=== PATIENT | female | born 1965 | race Caucasian/White ===

== ENCOUNTER → 2017-06-20 08:23 | Outpatient (CLI) | payer OTHER, SELFPAY ==
--- NOTE | 2017-06-20 | DI.RAD.S_ITS ---
PROCEDURE: FL UPPER GI W AIR INDICATIONS: EPIGASTRIC PAIN COMPARISON: None. 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 No suspicious abdominal calcifications, probable ingested tablet in the right midabdomen. Visualized solid organ contours appear normal. Bony structures appear unremarkable. Esophagus: Esophageal mucosa is normal on air-contrast views. On single-contrast views, there is normal esophageal peristalsis. No strictures, extrinsic mass effects, or diverticula. No hiatal hernia or elicited gastroesophageal reflux. There is normal transit of a calibrated barium tablet through the esophagus. Stomach: The stomach is normally distensible, with normal rugal fold thickness. No mucosal masses or ulcers. Pylorus and duodenal bulb appear normal in morphology. Duodenal folds are normal in thickness as well. IMPRESSION: Normal upper GI series. Source of epigastric pain is not seen. Dictated by: Reuben Zarate M.D. on 06/20/2017 at 9:13 Approved by: Reuben Zarate M.D. on 06/20/2017 at 9:15
== END ==
PROVIDERS: Family Provider Physician Assistant; PCP Physician Assistant; Visit Provider Physician Assistant
DX: R10.13 Epigastric pain (principal)
CPT/HCPCS: 74247

== ENCOUNTER → 2019-08-21 17:39 | Outpatient (CLI) | payer OTHER, SELFPAY ==
--- NOTE | 2019-08-21 | DI.MG.S_ITS ---
BILATERAL DIGITAL SCREENING MAMMOGRAM 3D/2D WITH CAD: 08/21/2019 CLINICAL: Routine screening. Comparison is made to exams dated: 04/15/2010 mammogram and 10/02/2008 mammogram - [facility]. There are scattered fibroglandular elements in both breasts. Current study was also evaluated with a Computer Aided Detection (CAD) system. No significant masses, calcifications, or other findings are seen in either breast. There has been no significant interval change. IMPRESSION: NEGATIVE There is no mammographic evidence of malignancy. A 1 year screening mammogram is recommended. This exam was interpreted at Station ID: [id number]. NOTE: For mammograms, a report in lay terms will be sent to the patient. Approximately 15% of breast malignancies will not be visualized mammographically. In the management of a palpable breast mass, a negative mammogram must not discourage biopsy of a clinically suspicious lesion. Electronically Signed By: Lacy sharma/logan:08/22/2019 11:13:31 letter sent: Normal Exam ACR BI-RADS Category 1: Negative [id number]
== END ==
PROVIDERS: Family Provider Physician Assistant; PCP Student in an Organized Health Care Education/Training Program; Referring Provider Student in an Organized Health Care Education/Training Program; Visit Provider Student in an Organized Health Care Education/Training Program
DX: Z12.31 Encounter for screening mammogram for malignant neoplasm of breast (principal)
CPT/HCPCS: 77063; 77067

== ENCOUNTER → 2020-09-10 09:05 | Outpatient (CLI) | payer OTHER, SELFPAY ==
[2020-09-10 10:20] LABS: COVID19 -Nasal RAPID Negative (Negative)
== END ==
PROVIDERS: Family Provider Physician Assistant; PCP Student in an Organized Health Care Education/Training Program; Referring Provider Surgery; Visit Provider Surgery
DX: Z20.822 Contact with and (suspected) exposure to COVID-19 (principal)
CPT/HCPCS: 87635; C9803

== ENCOUNTER 2020-09-11 12:00 | Day surgery (SDC) | payer OTHER, SELFPAY ==
[2020-09-11] VITALS (8 sets, daily range): BP systolic 123–144; BP diastolic 41–93; PULSE 60–74; RESP 12–17; TEMP 36.4–36.9; O2SAT 95–100; BMI 32.8
[2020-09-11] MEDS: LACTATED RINGERS 1,000 ML 200 ML IV (12:12)
--- NOTE | 2020-09-11 13:17 | PM.HP.1 ---
History of Present Illness History of Present Illness Date Patient Seen: 09/11/20 Time Patient Seen: 13:17 Chief complaint: SDC Narrative: The patient presents for colorectal sreening. They have never had any previous examination for such. No personal or family history of colon cancer. On further history denies any recent gastrointestinal symptoms. No nausea, vomiting, abdominal pain, loss of appetite, unexplained weight loss, change in bowel habits, diarrhea, constipation, melena, hematochezia, or bright red blood per rectum. Patient History Medical History (Updated 09/11/20 @ 13:18 by Bossman Hurtado MD) Appendicitis Surgical History Status post surgery (10/20/16) Family & Social History Social History: household members spouse Tobacco & Substance use: Smoking Status Never smoker alcohol intake frequency 3 or more drinks per day Substance Use Type does not use Meds Home Medications and Allergies Home Medications Medication Instructions Recorded Confirmed Type venlafaxine 150 mg tablet,extended 150 mg PO QDAY #0 10/20/16 09/11/20 History release 24 hr levonorgestrel 20 mcg/24 hours (6 See Rx Instructions .ROUTE 11/25/16 09/11/20 History yrs) 52 mg intrauterine device .COMPLEX #0 (Mirena) montelukast 10 mg tablet 10 mg PO DAILY 09/11/20 09/11/20 History Allergies Allergy/AdvReac Type Severity Reaction Status Date / Time hydrocodone [From VICODIN] Allergy Intermediate rash and Verified 09/11/20 12:40 vomiting Penicillins [PENICILLINS] Allergy Unknown unknown Verified 09/11/20 12:40 happed as a child Review of Systems Review of Systems ROS: Yes All systems reviewed with the patient and are negative except as otherwise documented Exam Vital Signs (past 8 hours): - 09/11/20 12:20 Temperature 98.5 F Pulse Rate 68 Respiratory Rate 16 Blood Pressure 144/93 H Pulse Oximetry 100 Oxygen Delivery Method Room Air Narrative Exam Narrative: BBCOGBL-tvdz-[id number] adult woman, no acute distress HEENT-no scleral icterus, hearing intact NECK-no JVD, trachea midline CVS- regular rate, no peripheral edema RESP-unlabored respiratory effort, no audible wheezing GI-soft, nontender nondistended MSK-no cyanosis or clubbing, extremities without deformity SKIN-warm, dry NEURO-alert and oriented, no focal deficits PYSCH-Appropriate mood and affect Assessment & Plan Assessment & Plan narrative: The patient requires colorectal screening and colonoscopy is recommended. Technical details were discussed. Risks, benefits, alternatives explained. Risks including but not limited to myocardial infarction, aspiration, bleeding, pain, missed lesion, incomplete examination, need for further radiographic studies, colonic perforation, and need for major abdominal surgery were discussed. All questions were answered to their satisfaction, and they are in agreement with this plan.
[2020-09-11] MEDS: MIDAZOLAM 5 MG/5 ML VIAL IV (13:23)
[2020-09-11] MEDS: fentaNYL 250 MCG/5 ML INJ IV (13:24)
--- NOTE | 2020-09-11 13:28 | PM.OP.ENDO ---
Operative Date/Time/Diagnoses Date of procedure: 09/11/20 Time of procedure: 13:28 Pre-op diagnosis: Screening colonoscopy Post-op diagnosis: other (Aborted colonoscopy) Procedure & Clinicians Study performed: Aborted colonoscopy Same procedure as scheduled: No Indications: Screening Surgeon: Bossman Hurtado Procedure Notes Procedure in detail: Medications: Conscious sedation using 5mg IV midazolam and 100mcg IV of fentanyl The history and physical was performed/updated and the patient is ASA class is 2. The procedure was discussed in detail with the patient. Potential risks complications including infection, bleeding, missed diagnosis, perforation, need for surgery, and were explained. Their questions were answered and informed consent was obtained. Patient was brought to the procedure room and placed standard monitoring equipment. The patient's vital signs were monitored continuously throughout the entire procedure. Prior to starting time-out was performed. The patient was placed in the left lateral recumbent position. Procedural sedation was administered. Examination began with a thorough inspection of the perianal area there was no evidence of fissures, fistulae, external hemorrhoids or cutaneous malignancy. The colonoscopy scope was then placed into the anal canal and was advanced forward. Quality of preparation was quite poor and despite irrigation it was in adequate for examination. Procedure was aborted FINDINGS 1. In adequate preparation The patient tolerated the procedure well. They will be discharged once criteria are met. The sedation time was 10 minutes. Specimen(s): none sent Complications: none Impression: Inadequate prep aborted colonoscopy Post-procedure Recommendations: Other recommendation (Surgery office will call to reschedule) Disposition: same day surgery
== END 2020-09-11 14:30 | disposition home or self-care (01) ==
PROVIDERS: Family Provider Physician Assistant; PCP Student in an Organized Health Care Education/Training Program; Referring Provider Surgery; Visit Provider Surgery
PROC: 0DJD8ZZ Inspection of Lower Intestinal Tract, Via Natural or Artificial Opening Endoscopic (ICD-10-PCS; CPT 45378; principal; 2020-09-11 13:00)
DX: Z12.11 Encounter for screening for malignant neoplasm of colon (principal); Z53.09 Procedure and treatment not carried out because of other contraindication
CPT/HCPCS: 45378; 99152; J2250; J3010

== ENCOUNTER → 2020-09-17 10:11 | Outpatient (CLI) | payer OTHER, SELFPAY ==
[2020-09-17 10:45] LABS: COVID19 -Nasal RAPID Negative (Negative)
== END ==
PROVIDERS: Family Provider Physician Assistant; PCP Student in an Organized Health Care Education/Training Program; Visit Provider Surgery
DX: Z01.812 Encounter for preprocedural laboratory examination (principal); Z20.822 Contact with and (suspected) exposure to COVID-19
CPT/HCPCS: 87635; C9803

== ENCOUNTER 2020-09-18 06:34 | Day surgery (SDC) | payer OTHER, SELFPAY ==
[2020-09-18] MEDS: LACTATED RINGERS 1,000 ML 100 ML IV (07:08)
[2020-09-18 07:09] VITALS: BP 130/89; PULSE 69; RESP 16; TEMP 37; O2SAT 97; BMI 33.9
--- NOTE | 2020-09-18 07:42 | PM.PREOP ---
Pre-operative Note COVID-19 COVID-19 status: Negative Interval Note History & Physical reviewed/Exam performed by Physician: Yes Changes to H&P: No ASA Class (for procedural sedation): I
[2020-09-18] MEDS: MIDAZOLAM 5 MG/5 ML VIAL IV (07:56)
[2020-09-18] MEDS: fentaNYL 250 MCG/5 ML INJ IV (07:56)
--- NOTE | 2020-09-18 08:05 | PM.OP.ENDO ---
Operative Date/Time/Diagnoses Date of procedure: 09/18/20 Time of procedure: 08:05 Pre-op diagnosis: screening colon cancer Post-op diagnosis: same Procedure & Clinicians Study performed: colonoscopy Same procedure as scheduled: Yes Indications: screening for colon cancer Surgeon: Tanesha Dubois Procedure Notes SCOAP/Timeout: done Procedure in detail: Preop diagnosis: Colon cancer screening with colonoscopy Postop diagnosis: Same Anesthetic: 100 mg of fentanyl 7 mg Versed Surgeon: Wendy Dubois MD Operative procedure: Colonoscopy with moderate sedation Findings: No diverticulosis, no polyps. 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 Rectal exam performed showing normal tone no masses. Small hemorrhoidal tags identified. Scope was inserted into the rectum and advanced in to the ileocecal valve without complication. Insufflation and extraction of the scope including retroflex in the rectum had the above findings. Impression: Normal colonoscopy. Excellent bowel prep. No polyps, no diverticulosis. Plan: Repeat colonoscopy in 10 years unless otherwise indicated by change in clinical condition or family history Scope withdrawal time: 5 Sedation minutes: 40 Specimen(s): none sent Complications: none Impression: normal colon. repeat colonoscopy 10 years Post-procedure Recommendations: Colonscopy in 10 years Plan for aftercare: home Follow up: as needed Disposition: PACU
[2020-09-18 08:06] VITALS: BP 118/68; PULSE 69; RESP 14; TEMP 36.6; O2SAT 95
[2020-09-18 08:11] VITALS: BP 110/57; PULSE 88; RESP 16; O2SAT 95
[2020-09-18 08:16] VITALS: BP 112/82; PULSE 74; RESP 16; O2SAT 96
[2020-09-18 08:22] VITALS: BP 119/89; PULSE 73; RESP 16; TEMP 36.4; O2SAT 98
[2020-09-18 08:37] VITALS: BP 121/67; PULSE 78; RESP 16; TEMP 36.6; O2SAT 98
== END 2020-09-18 08:40 | disposition home or self-care (01) ==
PROVIDERS: Family Provider Physician Assistant; PCP Student in an Organized Health Care Education/Training Program; Referring Provider Surgery; Visit Provider Surgery
PROC: 0DJD8ZZ Inspection of Lower Intestinal Tract, Via Natural or Artificial Opening Endoscopic (ICD-10-PCS; CPT 45378; principal; 2020-09-18 07:45)
DX: Z12.11 Encounter for screening for malignant neoplasm of colon (principal)
CPT/HCPCS: 45378; 99152; 99153; J2250; J3010

== ENCOUNTER → 2024-07-13 12:35 | Outpatient (CLI) | payer OTHER, SELFPAY ==
--- NOTE | 2024-07-13 12:37 | DI.MG.S_ITS ---
MM screening mammo BI: 07/13/2024. BI-RADS: 1 CLINICAL: 58-year old female for bilateral screening mammogram. Tyrer-Cuzick lifetime risk of 7.2%. No personal or first-degree family history of breast cancer. PRIOR EXAMS 08/21/2019. MAMMOGRAPHY TECHNIQUE: 2D and 3D (tomosynthesis) digital mammographic views obtained, with additional images as needed for full coverage. Current study was also evaluated with a Computer Aided Detection (CAD) system. DENSITY B. There are scattered areas of fibroglandular density. MAMMOGRAPHY FINDINGS Bilateral: No suspicious mass, asymmetry, microcalcification, or other abnormality seen. IMPRESSION: * No evidence of malignancy. RECOMMENDATIONS Bilateral * Annual screening mammography. OVERALL ASSESSMENT CATEGORY BI-RADS-1: Negative. The [employer] recommends annual screening mammography beginning at age 40 for women with average risk of breast cancer. ELECTRONICALLY SIGNED: Maksim Alberts M.D. on 07/13/2024 at 11:01:32 PM PT Interpreting Station ID: [id number]
== END ==
LOC: MAMMO 12:37
PROVIDERS: Family Provider Physician Assistant; PCP Student in an Organized Health Care Education/Training Program; Referring Provider Nurse Practitioner Family; Visit Provider Nurse Practitioner Family
DX: Z12.31 Encounter for screening mammogram for malignant neoplasm of breast (principal)
CPT/HCPCS: 77063; 77067